=== PATIENT | male | born 2000 | race Hispanic/Latino ===

== ENCOUNTER 2025-06-20 23:33 | Emergency (ER) | payer SELFPAY ==
[~2025-06-20] VITALS: Ht 175.3 cm; Wt 62.1 kg
[2025-06-20 23:34] VITALS: TEMP 99.5
[2025-06-21] LABS: IMMATURE GRANULOCYTE ABSOLUTE 0.03 K/uL (0-1); NUCLEATED RED BLOOD CELLS 0.0 % (0.0-0.19); PLATELET COUNT (AUTO) 214 K/uL (130-400); RED BLOOD CELL COUNT(AUTO) 4.05 MIL/uL (4.50-6.20); RED CELL DISTRIBUTION WIDTH 12.1 % (11.0-15.5); WHITE BLOOD COUNT (AUTO) 8.9 K/uL (4.8-10.8)
[2025-06-21 00:01] LABS: APPEARANCE,URINE CLOUDY (CLEAR); GLUCOSE, URINE (UA) NEGATIVE (NEGATIVE); LEUKOCYTE ESTERASE ,URINE 500 Leu/uL (NEGATIVE); NITRATE,URINE NEGATIVE (NEGATIVE); OCCULT BLOOD,URINE MODERATE (NEGATIVE)
[2025-06-21 00:03] LABS: ADD UA MICROSCOPIC YES
[2025-06-21 00:09] LABS: UNCLASSIFIED CRYSTAL 3 /HPF (None Seen)
[2025-06-21] MEDS: 0.9%NACL 1000ML 1,000 ML IV ONE (00:16)
[2025-06-21 00:20] LABS: CREATININE 1.2 mg/dL (0.5-1.3); GLOMERULAR FILTR. RATE CALC 87.0 mL/min (>90); GLUCOSE,RANDOM 118.0 mg/dL (70-105); SODIUM SERUM 137.0 mmol/L (136-145); UREA NITROGEN, BLOOD 14.0 mg/dL (7-18)
--- NOTE | 2025-06-21 01:17 | ERN ---
ED Note History of Present Illness Stated Complaint: C/O BLOOD IN URINE W/PAIN WHEN VOIDING Chief Complaint: Blood in Urine: Time Seen by MD: 23:34 Time Seen by Midlevel: 23:34 Dictation: The Patient is a 25-year-old male with no significant past medical history who presents to the emergency department with complaints of burning urination and blood in the urine onset two days ago. Patient also reports penile discharge white in color. Reports he has had unprotected sex. Patient denies any fevers. Denies any flank pain. Denies any abdominal pain, nausea vomiting or diarrhea. Allergies: Coded Allergies: No Known Drug Allergies (Unverified Allergy, Unknown, 06/19/25) Past Medical History Past Medical History: No Pertinent History Additional Past Medical Hx: denies pmhx Surgical History: None RN Note Reviewed/Agreed w/PFSH: Yes Review of System Dictation Constitutional: Negative for fever,chills, and weight loss Eyes: Negative for injury, pain,redness, and discharge ENT: Negative for injury,pain or swelling Cardiovascular: Negative for chest pain, palpitations, and edema Respiratory: Negative for shortness of breath, cough, and wheezing, Abdomen/GI: Negative for abdominal pain, nausea, vomiting, diarrhea, and constipation Back: Negative for injury and pain : Positive for bloody urination MS/Extremity: Negative for injury and deformity Skin: Negative for rash, and discoloration Neuro: Negative for headache, weakness, numbness, tingling, and seizure Psych: Negative for suicide ideation, homicidal ideation, and hallucinations Initial Vital Sign VS Vital Signs Date Time Temp Pulse Resp B/P (MAP) Pulse Ox O2 Delivery O2 Flow Rate FiO2 06/20/25 23:34 99.5 104 20 119/73 97 Room Air 06/20/25 23:34 0 21 Physical Exam Dictation Vital Signs reviewed General Appearance: Alert, oriented x 3, no acute distress, well developed, nourished. Head and Face: non-traumatic. Eyes: PERRL, pink conjunctivas, eyelid no trauma, anterior chamber with arcus senilis. Ears: Pinnas intact and no signs of trauma or erythema ear canals clear and no discharge TM no erythema Nose: No discharge, no bleeding. Oropharynx: Mouth normal, tongue pink. pharynx clear,no erythema, tonsils no exudates, no abscesses noted, mucous membrane moist Neck: Supple, non-tender, no thyromegaly, no masses, no JVD, no bruits Breast:Deferred Chest:No tenderness, no crepitus, no paradoxical movement, no retractions Lungs:Clear, well-ventilated, symmetric, no rales, no wheezing, no rhonchi, no stridor, good breath sounds bilaterally Heart: Regular rate, regular rhythm, no murmur, no gallops Vascular: no peripheral edema, Abdomen: Soft, positive bowel sounds, nondistended, no guarding, nontender, no rebound, no masses no hepatomegaly, no splenomegaly, no Lama's sign, no hernias. Rectal: Deferred Genital: Deferred Neurological: Normal speech, motor function intact, sensory function intact Musculoskeletal: Neck nontender, full range of motion, back nontender, full range of motion, Extremities: nontender, full range of motion Skin: Color pink, dry, no turgor, no rash, no lacerations, no abrasions, no contusions. Lymphatic: Deferred Results (Laboratory/Radiology) Laboratory/Radiology Laboratory Tests Test 06/20/25 23:36 06/20/25 23:52 Urine Color LIGHT-YELLOW (YELLOW) Urine Appearance CLOUDY (CLEAR) H Urine pH 6.5 (5.0-8.0) Urine Specific Neeses 1.023 (1.001-1.031) Urine Protein 20 mg/dL (NEGATIVE) H Urine Glucose (UA) NEGATIVE mg/dL (NEGATIVE) Urine Ketones NEGATIVE mg/dL (NEGATIVE) Urine Occult Blood MODERATE (NEGATIVE) H Urine Nitrate NEGATIVE (NEGATIVE) Urine Bilirubin NEGATIVE mg/dL (NEGATIVE) Urine Urobilinogen 0.2 mg/dL (0.2-1.0) Urine Leukocyte Esterase 500 Lorie/uL (NEGATIVE) H Urine RBC 51-100 /HPF (0-1) H Urine WBC TNTC /HPF (0-1) H Urine Other Crystals (Auto) 3 /HPF (None Seen) Urine Bacteria None /HPF (None Seen) White Blood Count 8.9 K/uL (4.8-10.8) Red Blood Count 4.05 MIL/uL (4.50-6.20) L Hemoglobin 12.5 g/dL (14.0-18.0) L Hematocrit 38.2 % (42-54) L Mean Corpuscular Volume 94.3 fL (79-99) Mean Corpuscular Hemoglobin 30.9 pg (27.0-33.0) Mean Corpuscular Hemoglobin Concent 32.7 g/dL (32.0-36.0) Red Cell Distribution Width 12.1 % (11.0-15.5) Platelet Count 214 K/uL (130-400) Mean Platelet Volume 10.4 fL (7.5-10.5) Immature Granulocyte % (Auto) 0.3 % (0-1) Neutrophils (%) (Auto) 76.3 % (40.0-77.0) Lymphocytes (%) (Auto) 16.5 % (21.0-51.0) L Monocytes (%) (Auto) 6.5 % (3.0-13.0) Eosinophils (%) (Auto) 0.1 % (0.0-8.0) Basophils (%) (Auto) 0.3 % (0.0-5.0) Neutrophils # (Auto) 6.8 K/uL (1.8-7.7) Lymphocytes # (Auto) 1.5 K/uL (1.0-4.8) Monocytes # (Auto) 0.6 K/uL (0.1-1.0) Eosinophils # (Auto) 0.01 K/uL (0.00-0.70) Basophils # (Auto) 0.03 K/uL (0.00-0.20) Absolute Immature Granulocyte (auto 0.03 K/uL (0-1) Nucleated Red Blood Cells 0.0 % (0.0-0.19) Sodium Level 137 mmol/L (136-145) Potassium Level 3.5 mmol/L (3.5-5.1) Chloride Level 100 mmol/L (101-111) L Carbon Dioxide Level 26 mmol/L (21-32) Blood Urea Nitrogen 14 mg/dL (7-18) Creatinine 1.2 mg/dL (0.5-1.3) Glomerular Filtration Rate Calc 87 mL/min (>90) Random Glucose 118 mg/dL (70-105) H Total Calcium 8.9 mg/dL (8.5-10.1) PATIENT: SHAINA KWONG MR#: [id number] : 2000 SEX: M AGE: 25 LOCATION: [facility] ORDER 44 STATUS: REG ER REPORT#: [id number] SERVICE REASON: hematuria, r/o kidney stones ORDERING PHYSICIAN: BAKARI HINDS PROCEDURE: ABD PEL WO - CT ABDOMEN/PELVIS W/O CONTRAST EXAM: CT Abdomen and Pelvis without IV contrast. CLINICAL HISTORY: Hematuria. Rule out kidney stones. TECHNIQUE: Thin collimated axial CT images of the abdomen and pelvis were obtained, with sagittal and coronal reformatted images also submitted. A CT scan is done according to ALARA (As Low As Reasonably Achievable). CONTRAST: None. COMPARISON: None. FINDINGS: Unremarkable visualized lung parenchyma. There is no focal abnormality appreciated within the liver, gallbladder, pancreas, spleen, adrenals, or kidneys. There is no obvious bowel wall thickening. Bowel loops are normal in caliber without evidence of obstruction or ileus. The appendix is unremarkable. The urinary bladder is partially distended with mild wall thickening measuring 3 mm. Unremarkable reproductive organs. Mild right groin lymphadenopathy with a maximum short axis diameter of 1.1 cm. No free fluid. No pneumoperitoneum. No gross abnormality in the abdominal vessels. There is no acute osseous abnormality. IMPRESSIONS: Mild cystitis. No renal, ureteric, or bladder calculus. Mild right groin lymphadenopathy. /[facility] Reviewed?: Yes ED Course ED Course Orders Procedure Category Date Status Time Cbc With Differential LAB 06/20/25 Complete 23:44 Urinalysis Profile LAB 06/20/25 Complete 23:44 Ct Abdomen/Pelvis W/O CT 06/20/25 Resulted Contrast 23:44 Basic Metabolic Panel LAB 06/20/25 Complete 23:44 0.9%Nacl 1000ml (Ns PHA 06/21/25 Complete 1000ml) 00:00 Culture Urine MICHELLE 06/21/25 In Process 00:03 Ceftriaxone 1g Vial PHA 06/21/25 Complete (Rocephine 1g Inj) 00:30 Chlamydia & Gc Pcr MICHELLE 06/21/25 In Process 01:17 Current Medications Medications (Trade) Dose Ordered Sig/Kal Route PRN Reason Start Time Stop Time Status Last Admin Dose Admin Ceftriaxone Sodium (ROCEphine 1G INJ) 1 gm ONCE ONCE IVPB 06/21/25 00:30 06/21/25 00:31 DC 06/21/25 00:33 Sodium Chloride 1,000 ml @ 0 mls/hr ONCE ONCE IV 06/21/25 00:00 06/21/25 00:12 DC 06/21/25 00:16 Vital Signs Date Time Temp Pulse Resp B/P (MAP) Pulse Ox O2 Delivery O2 Flow Rate FiO2 06/20/25 23:34 99.5 104 20 119/73 97 Room Air* 0 21 06/20/25 23:34 99.5 104 20 119/73 97 Room Air Medical Decision Making MDM The Patient is a 25-year-old male with no significant past medical history who presents to the emergency department with complaints of burning urination and blood in the urine onset two days ago. Patient also reports penile discharge white in color. Reports he has had unprotected sex. Patient denies any fevers. Denies any flank pain. Denies any abdominal pain, nausea vomiting or diarrhea. CBC showed no leukocytosis, mild anemia, chemistry showed no electrolyte imbalance, normal renal function, urinalysis positive for leukocyte esterase and moderate occult blood. CT abdomen showed mild cystitis. On physical exam patient is in no acute distress, nontoxic appearance. Patient will be discharged to follow up with PCP. We will treat patient with the antibiotics in pending cultures. Differential diagnosis: UTI, pyelonephritis, kidney stone, dehydration Need for hospitalization: Patient does not meet criteria for hospitalization. There are no social concerns with this patient. DX & DISP Disposition: Discharge Departure Impression: Primary Impression: Urinary tract infection with hematuria Condition: Stable Scripts Nitrofurantoin Monohyd/M-Cryst (Macrobid 100 mg Capsule) 100 Mg Capsule 1 CAP PO BID for 7 Days, #14 CAP 0 Refills Prov: BAKARI HINDS [employer] 06/21/25 Additional Instructions: Your urinalysis was positive for a urinary tract infection. Please follow up on your urine cultures in your STD cultures. Follow up with your primary doctor in 1-2 days. If anything worsens please return to ER. FOLLOW-UP WITH PRIMARY CARE PROVIDER IN 1 TO 2 DAYS. TAKE MEDICATIONS DIRECTED HERE IN THE EMERGENCY ROOM. OKAY TO CONTINUE HOME MEDICATIONS UNLESS O THERWISE DISCUSSED DURING YOUR VISIT IN THE EMERGENCY ROOM TODAY. RETURN TO YOUR NEAREST EMERGENCY ROOM IF SYMPTOMS WORSEN OR IF THERE IS NO IMPROVEMENT. CALL 911 IF YOU NEED IMMEDIATE ASSISTANCE. TAKE TYLENOL TUMC-GLJ-ABGAVUS NEEDED AND IF NO CONTRAINDICATIONS ARE PRESENT. INCREASE ORAL HYDRATION. A WOUND CULTURE OR URINE CULTURE WAS ORDERED HERE IN THE EMERGENCY ROOM DEPARTMENT PLEASE FOLLOW-UP WITH PRIMARY CARE PROVIDER AND ADVISE THEM TO GET REPEAT PORTS FROM OUR FACILITY. IF YOU HAD ANY GEETA WRAP/SPLINTS THAT WERE APPLIED HERE, PLEASE DO NOT REMOVE THEM UNTIL YOU SEE YOUR PRIMARY CARE OR SPECIALTY. Referrals: NONE (PCP) Time of Disposition: 02:02 I have reviewed the case, and I agree with, Diagnosis and Plan BAKARI HINDS [facility] Jun 21, 2025 01:17
--- NOTE | 2025-06-21 01:55 | HMCIMG ---
EXAM: CT Abdomen and Pelvis without IV contrast. CLINICAL HISTORY: Hematuria. Rule out kidney stones. TECHNIQUE: Thin collimated axial CT images of the abdomen and pelvis were obtained, with sagittal and coronal reformatted images also submitted. A CT scan is done according to ALARA (As Low As Reasonably Achievable). CONTRAST: None. COMPARISON: None. FINDINGS: Unremarkable visualized lung parenchyma. There is no focal abnormality appreciated within the liver, gallbladder, pancreas, spleen, adrenals, or kidneys. There is no obvious bowel wall thickening. Bowel loops are normal in caliber without evidence of obstruction or ileus. The appendix is unremarkable. The urinary bladder is partially distended with mild wall thickening measuring 3 mm. Unremarkable reproductive organs. Mild right groin lymphadenopathy with a maximum short axis diameter of 1.1 cm. No free fluid. No pneumoperitoneum. No gross abnormality in the abdominal vessels. There is no acute osseous abnormality. IMPRESSIONS: Mild cystitis. No renal, ureteric, or bladder calculus. Mild right groin lymphadenopathy. /[place]
[2025-06-21] MEDS ORDERED: NITR100C4 PO (02:03)
[2025-06-21 02:04] VITALS: BP 122/68; PULSE 90; RESP 18; O2SAT 99
== END 2025-06-21 02:09 | disposition home or self-care (01) ==
LOC: EDH 23:33
DX: N39.0 Urinary tract infection, site not specified (principal); R31.9 Hematuria, unspecified
CPT/HCPCS: 99285; 74176; 80048; 85025; 87086; 87491; 87591; 81001; 36415; 96374; 96361; J7030; J0696